=== PATIENT | male | born 1960 | race Hispanic/Latino ===

== ENCOUNTER 2020-02-03 12:39 | Outpatient (CLI) | payer OTHER ==
[2020-02-03 15:59] LABS: Hemoglobin 15.2 g/dL (14.0-18.0); Mean Corpuscular HGB CONC 34.1 g/dL (32.0-36.0); Mean Corpuscular Hemoglobin 34.2 pg (27.0-31.0); Mean Platelet Volume 7.6 fL (7.4-10.4); Platelet Count 221 thou/uL (130-400); RBC Distribution Width 11.9 % (11.5-14.5); Red Blood Cell (RBC) Count 4.45 mill/uL (4.70-6.10); White Blood Cell (WBC) Count 6.2 thou/uL (4.8-10.8)
[2020-02-03 16:27] LABS: INR-International Normal Ratio 0.8; PTT 29.3 sec (22.9-36.1); Prothrombin Time 11.7 sec (12.0-14.7)
[2020-02-03 16:32] LABS: Anion Gap 13 mmol/L (10-20); BUN (Urea Nitrogen) 13 mg/dL (8.4-25.7); Calc. Creatinine Clearance 0 mL/min (70-130); Calcium 9.2 mg/dL (7.8-10.44); Carbon Dioxide 25 mmol/L (22-29); Chloride 107 mmol/L (98-107); Estimated GFR-MDRD Greater than 90; Glucose 95 mg/dL (70-105); Sodium 141 mmol/L (136-145)
[2020-02-04 13:16] LABS: SARS-CoV-2 MS2 Positive; SARS-CoV-2 N Gene Negative; SARS-CoV-2 S Gene Negative; SARS-CoV-2 by NAA Not Detected (NotDetected); SARS-CoV-2 orf1ab Negative
== END 2020-02-03 12:40 | disposition home or self-care (01) ==
LOC: LABBT 12:39
PROVIDERS: ATTEND Urology
DX: Z01.818 Encounter for other preprocedural examination (principal); Z20.828 Contact with and (suspected) exposure to other viral communicable diseases
CPT/HCPCS: 80048; 85027; 85610; 85730; 87635; 93005; 93010; U0003

== ENCOUNTER 2020-02-05 05:55 | Day surgery (SDC) | payer OTHER ==
[2020-02-04 09:54] VITALS: BMI 31.3
[2020-02-05] MEDS ORDERED: Levofloxacin 500 mg/D5W 100 ml Premix Bag ONE (06:22)
[2020-02-05] MEDS ORDERED: Fentanyl 100 MCG/2 ML VIAL ONE ×3 (07:17→11:06)
[2020-02-05] MEDS ORDERED: Midazolam HCl 5 mg/5 ml Vial ONE (07:17)
[2020-02-05] MEDS ORDERED: Midazolam HCl 2 mg/2 ml Vial ONE (07:17)
[2020-02-05] MEDS ORDERED: Iothalamate Meglumine 60% 50 ML VIAL FS ONE (07:43)
[2020-02-05] MEDS ORDERED: B & O ONE (07:43)
--- NOTE | 2020-02-05 10:13 | RAD ---
EXAM: Retrograde IVP HISTORY: Kidney stones COMPARISON: None FINDINGS/IMPRESSION: Limited intraoperative fluoroscopic views of the retrograde IVP were submitted f or interpretation. Bilateral ureteral stents are seen in good position. A small calcification projects over the lower pole the left kidney. No calcifications are seen along the course of the wei nts.
[2020-02-05] MEDS ORDERED: Ondansetron PF 4 MG/2 ML Vial ONE (10:21)
[2020-02-05] MEDS ORDERED: Lidocaine 1% PF 5 ML VIAL ONE (10:21)
[2020-02-05] MEDS ORDERED: PROPOFOL 200 MG/20 ML VIAL ONE (10:21)
--- NOTE | 2020-02-05 10:52 | OP ---
DATE OF PROCEDURE: 02/05/2020 SERVICE: Urology. PREOPERATIVE DIAGNOSES: Bilateral renal stones and urethral stone. POSTOPERATIVE DIAGNOSES: Bilateral renal stones, bladder stone. PROCEDURES PERFORMED: Cystoscopy with cystolitholapaxy, bilateral ureteroscopy, laser lithotripsy, basket extraction of stones, bilateral retrograde pyelograms and placement of bilateral 6 x 26 double-J stents. INDICATIONS FOR PROCEDURE: Mr. aPlacio is a 59-year-old male who initially presented to me with dysuria and difficulty urinating. Cystoscopy in the office demonstrated a stone within the prostatic urethra just at the membranous urethral junction. Recommended to bring him to the operating room for treatment of the stone. Of note, the patient also has passing bilateral ureteral stones and I recommended that we go ahead and plan for treatment of both of the stones. He also has additional large stones within each kidney. I told him we could deal with all the stones at one time, which he agreed to with all risks and benefits discussed. DESCRIPTION OF PROCEDURE: After identification of armband and verification of consent, the patient was brought back to the operating room, where he underwent general anesthesia with an LMA. He was then placed in a dorsal lithotomy position and prepped and draped in usual sterile fashion. After appropriate time-out, a lubricated 22-Gibraltarian rigid cystoscope was introduced per urethra up to the level of the membranous urethra where there was a mild stricture noted. The stone was gone at this location either indicating that it had passed or was gone back into the bladder. Cystoscopy was then performed into the bladder where the stone was encountered. Using a 273 micron ball-tip laser fiber, the stone was fragmented into small pieces and then irrigated out using the cystoscope. Initial attention was then turned to the right ureteral orifice, which was cannulated with a 0.035 Sensor wire up to the level of renal pelvis. The cystoscope was then removed and a dual-lumen catheter was advanced over the Sensor wire to the distal ureter. Retrograde pyelogram was performed, which did not demonstrate any filling defects within the distal to mid or proximal ureter. The Super Stiff wire was then placed through the second lumen into the renal pelvis and the dual-lumen removed. A 12/14 long Bard ureteral access sheath was advanced over the Super Stiff wire up to the level of the proximal ureter. The inner cannula and Super Stiff wire were then removed leaving the outer sheath and Sensor wire in place as a safety wire. A flexible digital ureteroscope was then passed into the renal pelvis where some smaller stones were noted and were able to be basketed out using a 1.9-Gibraltarian Eliseo basket. There was one larger stone measuring approximately 6 to 8 mm, which was fragmented with the laser and then the fragments removed using the basket. Pull-back ureteroscopy was employed. No additional stones were noted within the ureter and no stones left greater than 1 mm within the renal pelvis. There were no dilations. A stent was then used after backloading the cystoscope over the Sensor wire and positioned fluoroscopically into the kidney. The wire was removed leaving a good curl in the kidney and a good curl in the bladder as confirmed both by x-ray and visual confirmation. Attention was then turned to the left ureteral orifice, which was cannulated with a 0.035 Sensor wire to the level of renal pelvis. The cystoscope was then removed and a dual-lumen was advanced into the distal ureter and a retrograde pyelogram was performed. This did demonstrate a potential filling defect within the distal ureter, so the dual-lumen was removed and the Sensor wire was affixed to the drapes as a safety wire. A semi-rigid ureteroscope was then placed into the distal ureter, but no stone was encountered up to the level of the mid ureter indicating that the filling defect was likely a bubble. The ureteroscope was then used to guide a Super Stiff wire into the renal pelvis and then ureteroscope removed. The same 03/28 ureteral access sheath was advanced over the Super Stiff wire into the level of the proximal ureter and the inner cannula and Super Stiff wire were then removed. A flexible digital ureteroscope was then passed into the renal pelvis. The only stone encountered within his kidney was extremely large approximately 1 cm stone in the mid pole. Using the same 273 micron ball-tip laser fiber, the stone was fragmented into small pieces and then a 1.9-Gibraltarian Eliseo basket used to remove all the specimens until there were no fragments remaining over 1 mm in size. Upon completion, there was a significant amount of dust and debris, but no additional large fragments. Pull-back ureteroscopy was employed and no additional stones within the ureter. No dilation that occurred. The sheath and ureteroscope were then removed. 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 Therefore, I did not feel it was necessary to leave a Hodgson catheter in this individual. B and O suppository were placed in the rectum. He was taken out of positioning, awakened, taken to PACU for recovery in stable condition. COMPLICATIONS: None. ESTIMATED BLOOD LOSS: Minimal. RETAINED TUBES AND DRAINS: Bilateral 6 x 26 double-J stents. SPECIMENS: Stone for stone analysis. DISPOSITION: The patient will be discharged home and follow up with me in approximately 1 week for cystoscopy and stent removal. Job ID: [id number]
[2020-02-05] MEDS ORDERED: HYDROcodone/Acetaminophen 5/325 mg Tablet ONE ×2 (12:03→14:50)
[2020-02-05] MEDS ORDERED: Morphine 2 MG/ML VIAL ONE (13:04)
[2020-02-05] MEDS ORDERED: Oxybutynin 5 MG TAB ONE (13:48)
== END 2020-02-05 16:50 | disposition home or self-care (01) ==
LOC: SDC 05:55
PROVIDERS: ATTEND Urology
PROC: 0TC38ZZ Extirpation of Matter from Right Kidney Pelvis, Via Natural or Artificial Opening Endoscopic (ICD-10-PCS; principal; 2020-02-05)
PROC: 0TC48ZZ Extirpation of Matter from Left Kidney Pelvis, Via Natural or Artificial Opening Endoscopic (ICD-10-PCS; principal; 2020-02-05)
PROC: 0TCB8ZZ Extirpation of Matter from Bladder, Via Natural or Artificial Opening Endoscopic (ICD-10-PCS; principal; 2020-02-05)
PROC: 0T788DZ Dilation of Bilateral Ureters with Intraluminal Device, Via Natural or Artificial Opening Endoscopic (ICD-10-PCS; principal; 2020-02-05)
DX: N20.0 Calculus of kidney (principal); N21.1 Calculus in urethra; N40.1 Benign prostatic hyperplasia with lower urinary tract symptoms; R39.11 Hesitancy of micturition; N99.112 Postprocedural membranous urethral stricture, male; E78.5 Hyperlipidemia, unspecified; K21.9 Gastro-esophageal reflux disease without esophagitis; M17.9 Osteoarthritis of knee, unspecified
CPT/HCPCS: 74420; 82365; 88300; J1956; J2250; J2270; J2405; J2704; J3010

== ENCOUNTER 2020-04-12 14:55 | Outpatient (CLI) | payer OTHER ==
--- NOTE | 2020-04-12 15:40 | ULT ---
RENAL ULTRASOUND: 04/12/20 HISTORY: Ureteral calculi. Right kidney measures 11 cm in length. No hydronephrosis. 6 mm calculus mid lower pole collecting str uctures right kidney. 1.0 cm calculus superior collecting structures right kidney. 1 cm cyst mid right renal cortex. Left kidney measures 13 cm in length. No hydronephrosis. 1.6 cm cyst medial left kidney with associated calcification. 1.5 cm cyst mid lateral right left kidn ey. 1 cm renal calcification mid left kidney. 1.5 to 1.7 cm cyst mid left kidney. Urinary bladder mildly distended and unremarkable. IMPRESSION: 1. No hydronephrosis. 2. Bilateral renal cysts. 3. Bilateral renal calculi. POS: AGW
== END 2020-04-12 14:56 | disposition home or self-care (01) ==
LOC: BICULT 14:55
PROVIDERS: ATTEND Urology
DX: N20.1 Calculus of ureter (principal); N20.0 Calculus of kidney
CPT/HCPCS: 76770

== ENCOUNTER 2020-07-22 10:48 | Outpatient (CLI) | payer BC | END 2020-07-22 10:49 | disposition home or self-care (01) | LOC: BICRAD 10:48 | PROVIDERS: ATTEND Urology | DX: N20.0 Calculus of kidney (principal) | CPT/HCPCS: 74018 ==

== ENCOUNTER 2022-07-11 14:08 | Outpatient (CLI) | payer BC ==
[~2022-07-11 14:08] MED LIST: Iopamidol 370 76% 100 ML VIAL ONE
== END 2022-07-11 14:09 | disposition home or self-care (01) ==
LOC: BICCT 14:08
PROVIDERS: ATTEND Nurse Practitioner Family
DX: R42 Dizziness and giddiness (principal); R22.0 Localized swelling, mass and lump, head; R51.9 Headache, unspecified; M89.30 Hypertrophy of bone, unspecified site; H53.9 Unspecified visual disturbance; D17.0 Benign lipomatous neoplasm of skin and subcutaneous tissue of head, face and neck
CPT/HCPCS: 70470; 82565; Q9967

== ENCOUNTER 2022-11-28 07:21 | Outpatient (CLI) | payer BC | END 2022-11-28 07:22 | disposition home or self-care (01) | LOC: RAD 07:21 | PROVIDERS: ATTEND Family Medicine | DX: R05.9 Cough, unspecified (principal); I50.9 Heart failure, unspecified | CPT/HCPCS: 71046 ==